=== PATIENT | male | born 1965 | race Caucasian/White ===

== ENCOUNTER 2022-06-24 06:57 | Outpatient (CLI) | payer OTHER, SELFPAY ==
[2022-06-24 08:19] LABS: Basophils Percent Auto 0.5 % (0.0-3.0); Eosinophils Percent Auto 1.9 % (0.0-7.0); Hemoglobin* 15.4 gm/dL (13.5-17.5); Immature Granulocytes Abs Auto 0.04 K/uL (0.00-0.30); Lymphocytes Percent Auto 29.7 % (20-44); Mean Corpuscular HGB Conc 34 gm/dL (32-36); Mean Corpuscular Hemoglobin 30 pg (26-34); Mean Corpuscular Volume 88 fL (80-100); Monocytes Percent Auto 7.8 % (0.0-11.0); Neutrophils Percent Auto 59.2 % (42.0-72.0); Platelet Count* 255 K/uL (140-440); RDW Coefficient of Variation % 12.5 % (11.5-15.5); White Blood Count* 4.24 K/uL (4.50-11.00)
[2022-06-24 08:31] LABS: Albumin* 4.5 g/dL (3.3-5.0)
[2022-06-24 08:32] LABS: Chloride* 106 mmol/L (96-114); Potassium* 4.6 mmol/L (3.6-5.1); Sodium* 139 mmol/L (135-149)
[2022-06-24 08:34] LABS: Alkaline Phosphatase* 97 U/L (40-150); Aspartate Amino Transferase* 21 U/L (12-35); Bilirubin Total* 0.7 mg/dL (0.1-1.5); Blood Urea Nitrogen* 23 mg/dL (7-30); Carbon Dioxide* 26 mmol/L (20-32); Cholesterol* 222 mg/dL (90-199); Creatinine* 1.1 mg/dL (0.5-1.5); Estimated Glomerular Filt Rate 78 ml/min; Glucose* 105 mg/dL (60-115); Total Protein* 7.1 g/dL (6.0-8.3); Uric Acid* 7.3 mg/dL (2.2-8.4)
[2022-06-24 08:35] LABS: Alanine Aminotransferase* 28 U/L (4-50); Calcium* 9.5 mg/dL (8.4-10.6); Gamma Glutamyl Transpeptidase* 23 U/L (8-55); HDL Cholesterol* 60 mg/dL (>=40); LDL Cholesterol Calculated 145 mg/dL (<100); Triglycerides* 84 mg/dL (40-149)
[2022-06-24 08:42] LABS: Slide Review Reflex No
[2022-06-25 13:26] LABS: DHEAS 54 ug/dL (52-295)
[2022-06-26 00:26] LABS: Insulin, Fasting 8 uIU/mL (3-25)
[2022-06-26 21:43] LABS: Copper, Serum/Plasma 105.3 ug/dL (70.0-140.0); Zinc, Serum/Plasma 101.2 ug/dL (60.0-120.0)
== END 2022-06-24 06:58 | disposition home or self-care (01) ==
LOC: LAB 06:59
PROVIDERS: PCP Family Medicine; Visit Provider Family Medicine
DX: Z00.00 Encounter for general adult medical examination without abnormal findings (principal); M10.9 Gout, unspecified; E78.5 Hyperlipidemia, unspecified; Z79.890 Hormone replacement therapy; E72.11 Homocystinuria; Z83.3 Family history of diabetes mellitus
CPT/HCPCS: 36415; 80053; 80061; 82525; 82627; 82977; 83525; 84550; 84630; 85025

== ENCOUNTER 2022-09-03 13:27 | Emergency (ER) | payer OTHER, SELFPAY ==
[2022-09-03 13:36] VITALS: BP 149/92; PULSE 90; TEMP 36.1; O2SAT 96; BMI 25.7
--- NOTE | 2022-09-03 14:28 | ED_ITS ---
HPI - General Adult General Time Seen by Provider: 14:29 Date Seen: 09/03/22 Chief complaint: Laceration/Wound Stated complaint: Hole in head Time Seen by Provider: 09/03/22 13:57 Source: patient Mode of arrival: ambulatory Limitations: no limitations History of Present Illness HPI narrative: Patient is a 56 year white male lao who got cut by a grease his arc on the left upper forehead, had a good amount of bleeding, seemed to be stopped now. He thinks he is up-to-date on tetanus. Generally is quite healthy. He is on no home medications common thinks his tetanus was within the last few years. No headache, no neck pain. Related Data Home Medications Medication Instructions Recorded Confirmed No Known Home Medications 08/26/22 08/26/22 Allergies Allergy/AdvReac Type Severity Reaction Status Date / Time No Known Drug Allergies Allergy Verified 09/03/22 13:35 Review of Systems Narrative: Patient denies any headache neck pain neurologic complaint. PFSH [facility] Social History Smoking Status: Never smoker Do you use any of these nicotine containing products: None Second hand tobacco smoke exposure: No How often do you have a drink containing alcohol: 2-4 times a month How many standard drinks containing alcohol do you have on a typical day: 1 or 2 How often do you have six or more drinks on one occasion: Never AUDIT-C Alcohol total score: 2 Non-prescribed substance use: denies use service: No Exam Narrative: Exam Narrative: Objective: HEENT is unremarkable other than a small puncture wound in the left upper hairline above the left side of the forehead no gaping good hemostasis aerial be cleansed by nursing staff There is no palpable step-off in that area HEENT otherwise unremarkable his neck is supple. Const: Vital Signs, click to edit/add: Vital Signs - 24 hr 09/03/22 13:36 Temperature 96.9 F L Pulse Rate [Pulse Oximeter] 90 Blood Pressure [Le ft Upper Arm] 149/92 H Pulse Oximetry 96 Oxygen Delivery Me thod Room Air Course Vital Signs Vital signs: Initial Vital Signs Temperature 96.9 F L 09/03/22 13:36 Temperature Source Temporal Artery Scan 09/03/22 13:36 Pulse Rate 90 09/03/22 13:36 Pulse Rhythm 09/03/22 13:36 Blood Pressure 149/92 H 09/03/22 13:36 Blood Pressure Mean 111 09/03/22 13:36 Blood Pressure Position Sitting 09/03/22 13:36 Pulse Oximetry 96 09/03/22 13:36 Oxygen Delivery Method 09/03/22 13:36 Vital Signs Temperature 96.9 F L 09/03/22 13:36 Pulse Rate 90 09/03/22 13:36 Blood Pressure 149/92 H 09/03/22 13:36 Pulse Oximetry 96 09/03/22 13:36 Oxygen Delivery Method 09/03/22 13:36 Temperature 96.9 F L 09/03/22 13:36 Pulse Rate 90 09/03/22 13:36 Blood Pressure 149/92 H 09/03/22 13:36 Pulse Oximetry 96 09/03/22 13:36 Oxygen Delivery Method 09/03/22 13:36 Medical Decision Making MDM Narrative Medical decision making narrative: Wound will be cleaned and then likely just simply covered. Discussed using antibiotics the patient declines this at this point, the patient would engage in light activity for 48 hours keep dry for 48 hours and then may shower and bathe as normal, watch for redness infection, return to ED if problems concerns. Discharge Plan Discharge Clinical Impression: Laceration Patient Disposition: Home, Self-Care Condition: Stable Additional Instructions: Keep area dry for 48 hours, may shower and bathe normally then, watch for redness infection, return if problems or concerns Activity Level: Light activity Discharge Diet: Regular Prescriptions: No Action No Known Home Medications Follow Up/Referrals: Shabbir Funez MD [Primary Care Provider] - Stand Alone Forms: [employer] Info Instructions
--- NOTE | 2022-09-03 14:41 | ED.NURSE ---
Unable to get Tetanus status as patient info not in [facility]
== END 2022-09-03 14:41 | disposition home or self-care (01) ==
LOC: ED 14:35
PROVIDERS: Emergency Provider Family Medicine; PCP Family Medicine
DX: S01.91XA Laceration without foreign body of unspecified part of head, initial encounter (principal)
CPT/HCPCS: 99282

== ENCOUNTER 2022-10-20 07:49 | Outpatient (CLI) | payer OTHER, SELFPAY ==
[2022-10-20 08:44] LABS: Basophils Absolute Auto 0.02 K/uL (0.00-0.30); Basophils Percent Auto 0.4 % (0.0-3.0); Eosinophils Absolute Auto 0.08 K/uL (0.00-0.50); Eosinophils Percent Auto 1.7 % (0.0-7.0); Hematocrit 43.3 % (37.0-53.0); Immature Granulocytes Abs Auto 0.02 K/uL (0.00-0.30); Immature Granulocytes Pct Auto 0.4 %; Lymphocytes Absolute Auto 1.51 K/uL (0.90-2.90); Lymphocytes Percent Auto 31.8 % (20-44); Mean Corpuscular HGB Conc 35 gm/dL (32-36); Mean Corpuscular Hemoglobin 31 pg (26-34); Mean Corpuscular Volume 89 fL (80-100); Neutrophils Absolute Auto 2.74 K/uL (1.7-7.0); Neutrophils Percent Auto 57.7 % (42.0-72.0); Platelet Count* 229 K/uL (140-440); RDW Coefficient of Variation % 11.9 % (11.5-15.5); Red Blood Count 4.89 m/uL (4.30-5.90); White Blood Count* 4.75 K/uL (4.50-11.00)
[2022-10-20 08:46] LABS: Slide Review Reflex No
[2022-10-20 09:04] LABS: Albumin* 4.8 g/dL (3.3-5.0); Chloride* 106 mmol/L (96-114); Sodium* 142 mmol/L (135-149)
[2022-10-20 09:05] LABS: Potassium* 4.1 mmol/L (3.6-5.1)
[2022-10-20 09:07] LABS: Alanine Aminotransferase* 25 U/L (4-50); Alkaline Phosphatase* 73 U/L (40-150); Aspartate Amino Transferase* 22 U/L (12-35); Bilirubin Total* 0.9 mg/dL (0.1-1.5); Blood Urea Nitrogen* 21 mg/dL (7-30); Carbon Dioxide* 29 mmol/L (20-32); Creatinine* 1.1 mg/dL (0.5-1.5); Estimated Glomerular Filt Rate 78 ml/min; Glucose* 94 mg/dL (60-115); Total Protein* 7.5 g/dL (6.0-8.3)
[2022-10-20 09:08] LABS: Calcium* 9.5 mg/dL (8.4-10.6)
[2022-10-21 12:37] LABS: Homocysteine, Total 10 umol/L (0-15)
[2022-10-21 21:55] LABS: Insulin, Random 6 uIU/mL
[2022-10-22 06:37] LABS: Copper, Serum/Plasma 91.7 ug/dL (70.0-140.0); Zinc, Serum/Plasma 85.7 ug/dL (60.0-120.0)
[2022-10-22 09:30] LABS: HLA-B27 Negative (Negative)
== END 2022-10-20 07:50 | disposition home or self-care (01) ==
PROVIDERS: PCP Family Medicine; Visit Provider Family Medicine
DX: M10.9 Gout, unspecified (principal); E78.5 Hyperlipidemia, unspecified; E72.11 Homocystinuria; Z79.890 Hormone replacement therapy
CPT/HCPCS: 36415; 80053; 82525; 83090; 83525; 84630; 85025; 86812

== ENCOUNTER 2022-11-03 07:47 | Outpatient (CLI) | payer OTHER, SELFPAY ==
[2022-11-03 08:37] LABS: Gamma Glutamyl Transpeptidase* 24 U/L (8-55); Uric Acid* 7.9 mg/dL (2.2-8.4)
[2022-11-03 09:29] LABS: Ferritin* 81.5 ng/mL (17.9-464.0)
[2022-11-05 04:21] LABS: DHEAS 105 ug/dL (52-295)
== END 2022-11-03 07:48 | disposition home or self-care (01) ==
PROVIDERS: PCP Family Medicine; Visit Provider Family Medicine
DX: M10.9 Gout, unspecified (principal); E78.5 Hyperlipidemia, unspecified; Z79.890 Hormone replacement therapy; E72.11 Homocystinuria
CPT/HCPCS: 36415; 82627; 82728; 82977; 84550

== ENCOUNTER 2022-11-12 07:01 | Outpatient (CLI) | payer OTHER, SELFPAY | END 2022-11-12 07:02 | disposition home or self-care (01) | PROVIDERS: PCP Family Medicine; Visit Provider Family Medicine | DX: I10 Essential (primary) hypertension (principal); R74.8 Abnormal levels of other serum enzymes; E78.5 Hyperlipidemia, unspecified; E63.9 Nutritional deficiency, unspecified; M10.9 Gout, unspecified; Z79.890 Hormone replacement therapy; E72.11 Homocystinuria | CPT/HCPCS: 36415; 80061; 83695 ==

== ENCOUNTER 2023-08-27 08:47 | Outpatient (CLI) | payer OTHER, SELFPAY ==
--- NOTE | 2023-08-27 10:51 | W.ANESCHARGE ---
Anesthesia Charges Start Date/Time Anesthesia Start Date: 08/27/23 Anesthesia Start Time: 10:19 Stop Date/Time Anesthesia Stop Date: 08/27/23 Anesthesia Stop Time: 10:49
--- NOTE | 2023-08-27 11:07 | W.ANESCHARGE ---
Anesthesia Charges Start Date/Time Anesthesia Start Date: 08/27/23 Anesthesia Start Time: 10:19 Stop Date/Time Anesthesia Stop Date: 08/27/23 Anesthesia Stop Time: 10:49
== END 2023-08-27 08:48 | disposition home or self-care (01) ==
LOC: OP CLINIC 08:48
PROVIDERS: PCP Family Medicine; Visit Provider Surgery
DX: R93.3 Abnormal findings on diagnostic imaging of other parts of digestive tract (principal); K63.5 Polyp of colon; K62.1 Rectal polyp; N42.9 Disorder of prostate, unspecified
CPT/HCPCS: 00811; 45385; 88305; J2704